=== PATIENT | male | born 1995 | race Caucasian/White ===

== ENCOUNTER 2017-07-09 12:13 | Emergency (ER) | payer OTHER ==
[~2017-07-09] VITALS: Wt 87.4 kg
[~2017-07-09 12:13] MED LIST: HYDR-3498 PO; IBUP-1542 PO; NO MEDS
[2017-07-09] MEDS ORDERED: CLOT30CR24 TOP (14:36)
[2017-07-09] MEDS ORDERED: DOXY100T20 PO (14:36)
[2017-07-09] MEDS ORDERED: BEN25 PO (14:36)
--- NOTE | 2017-07-09 15:31 | ERD ---
ER Documentation Chief Complaint Chief Complaint RASH ON WRIST, FACE, ONSET SEVERAL DAYS HPI Patient is a 22-year-old male with no significant medical history presenting to the emergency department with complaints of rash which he first noticed on his face just lateral to his right eye. The lesion was itchy and then became crusted over and had some pus draining from it. The rash and spread to his bilateral upper and lower extremities. He does have history of the same which self resolved without intervention. 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 Multiple other people that he practices with on the mat have had similar symptoms. He denies fevers, chills, or other symptoms at this time. Symptoms are intermittent and have shown no improvement. ROS All systems reviewed and are negative except as per history of present illness. Medications Home Meds Active Scripts Diphenhydramine Hcl* (Benadryl*) 25 Mg Cap, 25 MG PO Q6, #30 CAP Prov:IRINA WOODWARD PA-C 07/09/17 Clotrimazole* (Clotrimazole* AF) 1% - 30 Gm Cream.gm., 1 APPLIC TOP BID for 10 Days, #1 TUB Prov:IRINA WOODWARD PA-C 07/09/17 Doxycycline Hyclate* (Doxycycline Hyclate*) 100 Mg Tablet.dr, 100 MG PO BID for 7 Days, #14 TAB Prov:IRINA WOODWARD PA-C 07/09/17 Hydrocodone Bit-Acetaminophen* ([place]*) 5-325 Mg Tab, 1 TAB PO Q6 Y for PAIN, # 20 TAB Prov:NICOLE ESCOBAR NP 07/19/15 Ibuprofen* (Ibuprofen*) 600 Mg Tablet, 600 MG PO Q6H Y for pa, #30 TAB Prov:NICOLE ESCOBAR NP 07/19/15 Reported Medications [No Meds] No Conflict Check 01/01/11 Allergies Allergies: Coded Allergies: No Known Drug Allergy (Verified Allergy, Mild, 07/09/17) PMhx/Soc Medical and Surgical Hx: pt denies Medical Hx, pt denies Surgical Hx History of Surgery: No Anesthesia Reaction: No Hx Neurological Disorder: No Hx Respiratory Disorders: No Hx Cardiac Disorders: No Hx Psychiatric Problems: No Hx Miscellaneous Medical Probl: No Hx Alcohol Use: Yes (socially) Hx Substance Use: Yes (marijuana occasionally) Hx Tobacco Use: No Smoking Status: Never smoker Physical Exam Vitals Vital Signs Date Time Temp Pulse Resp B/P Pulse Ox O2 Delivery O2 Flow Rate FiO2 07/09/17 12:22 97.1 75 18 117/61 98 Physical Exam Const: Nontoxic, well-appearing male in no acute distress. Head: Atraumatic Eyes: Normal Conjunctiva ENT: Normal External Ears, Nose and Mouth. Skin: Annular lesions noted with central clearing about the face and bilateral upper and lower extremities. There is some crusting noted. There is a mild amount of discharge noted to the lesion just lateral to the right eye. No sign of significant disseminated cellulitis. Ext: No cyanosis, or edema Neur: Awake and alert Psych: Normal Mood and Affect Procedures/MDM 22-year-old male presents to the emergency department with complaints of rash. History and physical examination is consistent with a tinea corporis with secondary bacterial infection. No evidence of significant cellulitis, sepsis, or other emergent conditions. The patient stable for outpatient management with a prescription for doxycycline, Benadryl, and topical clotrimazole. No evidence of life-threatening pathology at time of discharge. Pt/family in agreement with discharge plan/diagnosis. Pt/family advised to return immediately with any new or worsening symptoms. Follow-up with primary care physician within the next 1-2 days. Departure Diagnosis: Primary Impression: Tinea corporis Additional Impression: Cellulitis Site of cellulitis: unspecified site Qualified Code: L03.90 - Cellulitis, unspecified cellulitis site Condition: Fair Patient Instructions: Cellulitis, Tinea Corporis Additional Instructions: Call your primary care doctor TOMORROW for an appointment during the next 1-2 days.See the doctor sooner or return here if your condition worsens before your appointment time. IRINA WOODWARD PA-C Jul 09, 2017 15:31
== END 2017-07-09 14:59 | disposition home or self-care (01) ==
LOC: FTE 12:13
DX: B35.4 Tinea corporis (principal); L03.211 Cellulitis of face
CPT/HCPCS: 99283

== ENCOUNTER 2018-05-04 22:44 | Emergency (ER) | END 2018-05-05 02:47 | disposition home or self-care (01) ==